=== PATIENT | female | born 1990 | race Asian ===

== ENCOUNTER 2017-02-19 05:30 | Inpatient (IN) | payer SELFPAY ==
[~2017-02-19] VITALS: Ht 162.6 cm; Wt 66.2 kg
[2017-02-19] MEDS ORDERED: LACTATED RINGERS 1,000 ML IV SCH (06:13)
[2017-02-19] MEDS ORDERED: OXYTOCIN 20 UNITS in LACTATED RINGERS 1,000 ML IV SCH (06:13)
[2017-02-19] MEDS ORDERED: OXYTOCIN 10 UNITS/ML VIAL IM SCH (06:15)
[2017-02-19] MEDS ORDERED: LACTATED RINGERS 500 ML IV ONE (06:15)
[2017-02-19] MEDS ORDERED: PROMETHAZINE 25 MG/ML VIAL IVP PRN (06:15)
[2017-02-19] MEDS ORDERED: METHYLERGONOVINE 0.2 MG/ML AMP IM PRN ×2 (06:15→15:15)
[2017-02-19] MEDS ORDERED: AMPICILLIN 2,000 MG in NACL 0.9% MINI-BAG PLUS 100 ML IV SCH (06:15)
[2017-02-19] MEDS ORDERED: CARBOPROST 250 MCG/ML AMP IM PRN (06:15)
[2017-02-19] MEDS ORDERED: NALBUPHINE HYDROCHLORIDE 10 MG/ML VIAL IVP PRN (06:15)
[2017-02-19] MEDS ORDERED: FERR-252 PO (06:16)
[2017-02-19] MEDS ORDERED: ROPIVACAINE 0.2%/NS PREMIX 250 ML EPI ONE (06:56)
[2017-02-19 07:01] LABS: BASOPHILS # (AUTO) 0.1 K/uL (0.00-0.22); BASOPHILS % (AUTO) 0.7 % (0.0-2.0); EOSINOPHILS # (AUTO) 0.1 K/uL (0-0.4); EOSINOPHILS % (AUTO) 0.8 % (0.0-4.0); HEMATOCRIT 37.4 % (36-48); HEMOGLOBIN 12.7 g/dL (12.0-16.0); LYMPHOCYTES # (AUTO) 1.6 K/uL (2.5-16.5); LYMPHOCYTES % (AUTO) 20.3 % (20.5-51.1); MEAN CORPUSCULAR HEMOGLOBIN 31 pg (27-31); MEAN CORPUSCULAR HGB CONC 34 g/dL (33-37); MEAN CORPUSCULAR VOLUME 93 fL (80-94); MONOCYTES # (AUTO) 0.6 K/uL (0.8-1.0); MONOCYTES % (AUTO) 7.5 % (1.7-9.3); NEUTROPHILS # (AUTO) 5.7 K/uL (1.8-7.7); NEUTROPHILS % (AUTO) 70.7 % (42.2-75.2); PLATELET COUNT (AUTO) 128 K/uL (140-450); RED BLOOD CELL COUNT(AUTO) 4.03 MIL/uL (4.20-5.40); WHITE BLOOD COUNT (AUTO) 8.1 K/uL (4.8-10.8)
[2017-02-19 07:07] LABS: ALBUMIN 2.6 g/dL (3.4-5.0); ANION GAP 16.1 (8-16); CARBON DIOXIDE 22.8 mmol/L (21-32); CREATININE 0.6 mg/dL (0.6-1.3); POTASSIUM 3.9 mmol/L (3.5-5.1); TOTAL BILIRUBIN 0.3 mg/dL (0.0-1.0)
[2017-02-19 07:50] VITALS: BP 105/66
[2017-02-19] MEDS ORDERED: AMPICILLIN 2,000 MG VIAL ONE (08:07)
[2017-02-19 09:34] LABS: APPEARANCE,URINE HAZY (CLEAR); BILIRUBIN,URINE NEGATIVE (NEGATIVE); BLOOD, URINE TRACE-I (NEGATIVE); COLOR,URINE YELLOW (YELLOW); LEUKOCYTE ESTERASE ,URINE NEGATIVE (NEGATIVE); NITRITE, URINE NEGATIVE (NEGATIVE); UGLUCOSE NEGATIVE (NEGATIVE)
[2017-02-19 09:45] LABS: RBC,URINE 3-10 (FEW) /HPF (0-5)
[2017-02-19 09:47] LABS: WBC,URINE 0-5 (RARE) /HPF (0-5)
--- NOTE | 2017-02-19 10:16 | NUR ---
PATIENT HAS BEEN SCREENED AND CATEGORIZED LOW NUTRITION RISK. PATIENT WILL BE SEEN WITHIN 7 DAYS OF ADMISSION. 02/25/[address]
[2017-02-19] MEDS ORDERED: AMPICILLIN 1,000 MG VIAL ONE (11:56)
[2017-02-19] MEDS ORDERED: OXYTOCIN 10 UNITS/ML VIAL ONE (14:19)
[2017-02-19] MEDS ORDERED: BENZOCAINE/MENTHOL 20%-0.5% 60 GM CAN TP PRN (15:15)
[2017-02-19] MEDS ORDERED: TEMAZEPAM 15 MG CAP PO PRN (15:15)
[2017-02-19] MEDS ORDERED: MEASLES, MUMPS, AND RUBELLA 1 VIAL SQVAC PRN (15:15)
[2017-02-19] MEDS ORDERED: oxyCODONE/APAP 5/325 MG 1 TAB TAB PO PRN (15:15)
[2017-02-19] MEDS ORDERED: OXYTOCIN 10 UNITS/ML VIAL IM PRN (15:15)
[2017-02-19] MEDS ORDERED: IBUPROFEN 800 MG TAB PO PRN (15:15)
[2017-02-19] MEDS ORDERED: DOCUSATE SOD/SENNA 50/8.6 MG 1 TAB PO SCH (21:00)
[2017-02-19] MEDS: HYDROcodone/APAP 5/325 MG 1 TAB TAB PO PRN (21:01)
[2017-02-20] MEDS ORDERED: AMPICILLIN 1,000 MG in NACL 0.9% MINI-BAG PLUS 50 ML IV SCH ×2
[2017-02-20 06:28] LABS: HEMATOCRIT 30.3 % (36-48); HEMOGLOBIN 10.5 g/dL (12.0-16.0)
[2017-02-20] MEDS: HYDROcodone/APAP 5/325 MG 1 TAB TAB PO PRN ×2 (08:56→20:52)
[2017-02-21] MEDS ORDERED: IBUP-1842 PO (08:10)
== END 2017-02-21 12:35 | disposition home or self-care (01) | DRG 775 ==
LOC: MFCC 05:30
PROVIDERS: ADMIT Obstetrics & Gynecology; ATTEND Obstetrics & Gynecology
PROC: 10E0XZZ Delivery of Products of Conception, External Approach (ICD-10-PCS; principal; 2017-02-19)
PROC: 0W8NXZZ Division of Female Perineum, External Approach (ICD-10-PCS; 2017-02-19)
PROC: 3E0R3BZ Introduction of Anesthetic Agent into Spinal Canal, Percutaneous Approach (ICD-10-PCS; 2017-02-19)
PROC: 00HU33Z Insertion of Infusion Device into Spinal Canal, Percutaneous Approach (ICD-10-PCS; 2017-02-19)
DX: O80 Encounter for full-term uncomplicated delivery (principal); Z37.0 Single live birth; Z3A.39 39 weeks gestation of pregnancy
CPT/HCPCS: 36415; 51702; 59409; 80053; 81001; 85018; 85025; 86592; 86886; 86900; 86901; C1758; J0290; J2590; J2795; J7120